=== PATIENT | female | born 2000 | race African-American/Black ===

== ENCOUNTER 2022-05-17 11:01 | Emergency (ER) | payer OTHER, SELFPAY ==
--- NOTE | ~2022-05-17 | XR_ITS ---
EXAMINATION: XR wrist RT min 3V INDICATION: Right wrist pain TECHNIQUE: Four views of the right wrist are obtained. COMPARISON: None available FINDINGS: There is no fracture, dislocation, or subluxation. The bones, soft tissues, and joint space s are normal. IMPRESSION: 1. No acute osseous abnormality. Reviewed, dictated and finalized at location A.
[2022-05-17 11:05] VITALS: BP 139/81; PULSE 96; RESP 16; TEMP 36.4; O2SAT 100
--- NOTE | 2022-05-17 11:16 | PC.NURSE ---
xray at bedside
[2022-05-17] MEDS: KETOROLAC (*BKC) 60 MG/2 ML VIAL IM (11:37)
--- NOTE | 2022-05-17 11:54 | ED.UPPEXIN ---
HPI - Extremity Injury (Upper) General Chief Complaint: Extremity Injury, Upper Stated Complaint: rigth wrist pain Time Seen by Provider: 05/17/22 11:06 History of Present Illness HPI narrative: 21-year-old female presented the emergency room complaints of right wrist pain. Patient states that she was pushing herself up from a sitting position when she hyperextended her wrist. Patient states injury occurred 5 days ago. States taking Tylenol alleviates her pain. Related Data Allergies Allergy/AdvReac Type Severity Reaction Status Date / Time No Known Allergies Allergy Verified 05/17/22 11:12 Review of Systems Review of Systems: CONSTITUTIONAL: Denies fever, chills, or sweats. EYES: Denies visual changes, redness, or discharge. ENT: Denies rhinorrhea, congestion, sore throat, or otalgia. CARDIOVASCULAR: Denies chest pain, palpitations, or edema. RESPIRATORY: Denies cough or dyspnea. GASTROINTESTINAL: Denies abdominal pain, nausea, vomiting, or diarrhea. GENITOURINARY: Denies dysuria or hematuria. SKIN: Denies rash or itching. MUSCULOSKELETAL: Reports right wrist pain NEUROLOGIC: Denies headache, numbness, dizziness, or weakness. PSYCHIATRIC: Denies anxiety or depression. Exam Narrative: GENERAL: Well-appearing, well-nourished, no physical limitations, and in no acute distress. HEAD: Normocephalic, atraumatic. EYES: Conjunctivae normal, PERRLA and EOMI. CHEST: Clear to auscultation. No respiratory distress. No wheezes rales or rhonchi. No tenderness. HEART: Regular rate and rhythm. No murmur heard. Normal peripheral pulses. EXTREMITIES: Right wrist: No obvious bony abnormality. Full range of motion with active and passive movements. Neurovascular is intact distally no ecchymosis of soft tissue swelling noted. SKIN: Warm, dry, no rash. No noted wounds NEURO: No focal deficits. Alert and oriented x3. MAEW. CN's II-XI intact bilaterally, normal gait PSYCH: Cooperative. Normal mood and affect. Course Vital Signs Vital signs: Vital Signs Temperature 36.4 C 05/17/22 11:05 Pulse Rate 96 05/17/22 11:05 Respiratory Rate 16 05/17/22 11:05 Blood Pressure 139/81 05/17/22 11:05 Pulse Oximetry 100 05/17/22 11:05 Oxygen Delivery Room Air 05/17/22 11:05 Temperature 36.4 C 05/17/22 11:05 Pulse Rate 96 05/17/22 11:05 Respiratory Rate 16 05/17/22 11:05 Blood Pressure 139/81 05/17/22 11:05 Pulse Oximetry 100 05/17/22 11:05 Oxygen Delivery Room Air 05/17/22 11:05 Discharge Plan Discharge Clinical Impression: Sprain and strain of wrist Patient Disposition: Home, Self-Care Condition: Stable Instructions: Antibiotic Form, Wrist Sprain (ED) Additional Instructions: Apply heat to affected area. May supplement naproxen with Tylenol. Follow-up with orthopedics in 1 to 2 weeks if symptoms or not resolving. Prescriptions: New naproxen 500 mg tablet 500 mg PO BID Qty: 20 0RF Follow-up/Referrals: UNKNOWN,DOCTOR [Primary Care Provider] - Stephan Toure MD [Physician] - Time of Disposition: 11:56
--- NOTE | 2022-05-17 12:13 | PC.NURSE ---
Registration at bedside
[2022-05-17 12:24] VITALS: BP 111/82; PULSE 88; RESP 16; TEMP 36.8; O2SAT 100
== END 2022-05-17 12:24 | disposition home or self-care (01) ==
LOC: ANHED 12:15
PROVIDERS: Emergency Provider Nurse Practitioner Family
DX: S63.501A Unspecified sprain of right wrist, initial encounter (principal); S66.911A Strain of unspecified muscle, fascia and tendon at wrist and hand level, right hand, initial encounter; X50.9XXA Other and unspecified overexertion or strenuous movements or postures, initial encounter
CPT/HCPCS: 73110; 96372; 99283; J1885